=== PATIENT | male | born 1955 | race Two or more races ===

== ENCOUNTER 2016-06-09 15:20 | Inpatient (IN) | payer MEDICAID ==
[~2016-06-09] VITALS: Ht 160 cm; Wt 56.2 kg
[2016-06-09 15:55] VITALS: BP 108/69
[2016-06-09] MEDS ORDERED: METOPROLOL TART50 M1 ORAL (16:05)
[2016-06-09] MEDS ORDERED: FAMOTIDINE20 MG ORAL (16:05)
[2016-06-09] MEDS ORDERED: AMIODARONE HCL400 M1 ORAL (16:05)
[2016-06-09 16:08] LABS: BASOPHILS % (AUTO) 0.5 % (0.0-2.0); EOSINOPHILS % (AUTO) 1.1 % (0.0-3.0); LYMPHOCYTES % (AUTO) 24.8 % (20.0-45.0); MEAN CORPUSCULAR HEMOGLOBIN 30.8 PG (27.0-31.0); MEAN CORPUSCULAR HGB CONC 32.9 G/DL (32.0-36.0); MEAN CORPUSCULAR VOLUME 94 FL (80-99); MEAN PLATELET VOLUME 6.5 FL (6.5-10.1); MONOCYTES % (AUTO) 9.4 % (1.0-10.0); NEUTROPHILS % (AUTO) 64.2 % (45.0-75.0); PLATELET COUNT 185 K/UL (150-450); RED BLOOD COUNT 3.76 M/UL (4.70-6.10); WHITE BLOOD COUNT 6.4 K/UL (4.8-10.8)
[2016-06-09 16:43] LABS: TROPONIN I < 0.30 ng/mL (<=0.30)
[2016-06-09 16:44] LABS: ALANINE AMINOTRANSFERASE 13 U/L (3-41); ANION GAP 15 (5-15); ASPARTATE AMINO TRANSFERASE 14 U/L (5-40); CALCIUM 8.3 mg/dL (8.6-10.2); CARBON DIOXIDE 26 mEQ/L (20-30); CHLORIDE 94 mEQ/L (98-107); CREATININE 0.8 mg/dL (0.7-1.2); GLOMERULAR FILTRATION RATE > 60 mL/min (>60); HEMOLYSIS 2; POTASSIUM 4.2 mEQ/L (3.4-4.9); SODIUM 135 mEQ/L (135-145); TOTAL PROTEIN 6.2 g/dL (6.6-8.7)
[2016-06-09 16:54] LABS: CKMB < 1.5 ng/mL (< 6.7)
[2016-06-09 17:49] LABS: APPEARANCE,URINE CLEAR; KETONES,URINE NEGATIVE (NEGATIVE); LEUKOCYTE ESTERASE ,URINE NEGATIVE (NEGATIVE); NITRITE,URINE NEGATIVE (NEGATIVE); PH,URINE 6 (4.5-8.0); PROTEIN,URINE 1+ (NEGATIVE); UROBILINOGEN,URINE 1 MG/DL (0.0-1.0)
[2016-06-09 18:02] LABS: RBC,URINE 0-2 /HPF (0 - 0); WBC,URINE 0-2 /HPF (0 - 0)
[2016-06-09 18:03] LABS: BACTERIA,URINE OCCASIONAL /HPF
[2016-06-09 18:24] VITALS: BP 94/65
--- NOTE | 2016-06-09 18:27 | Emergency Room Report ---
History of Present Illness General Chief Complaint: Syncope Source: Patient, EMS Present Illness HPI 60-year-old male presents to ED status post syncopal episode. Patient states he passed out today while at home. Denies hitting his head or LOC. Patient states that he's been feeling weak for the last several days. Patient has history of pacemaker and history of stomach cancer. Patient received chemotherapy weekly. Patient states he's been feeling very weak because of the chemotherapy. Denies any fevers or chills. Denies chest pain shortness of breath. Other aggravating relieving factors. Denies any other associated symptoms. Patient does not remember his PMD but states he does get care at [facility] Allergies: Coded Allergies: No Known Allergies (Unverified , 06/09/16) Patient History Past Medical History: other - stomach cancer Past Surgical History: pacemaker Pertinent Family History: none Social History: Denies: alcohol use, drug use, smoking Immunizations: UTD Reviewed Nursing Documentation: PMH: Agreed, PSxH: Agreed Nursing Documentation-PMH Hx Pacemaker: Yes Hx Cancer: Yes - STOMACH Review of Systems All Other Systems: negative except mentioned in HPI Physical Exam Vital Signs Date Time Temp Pulse Resp B/P Pulse Ox O2 Delivery O2 Flow Rate FiO2 06/09/16 15:15 97.5 84 16 118/79 99 Room Air Sp02 EP Interpretation: reviewed, normal General Appearance: no apparent distress, alert, GCS 15, non-toxic, thin Head: normocephalic, atraumatic Eyes: bilateral eye PERRL, bilateral eye normal inspection ENT: hearing grossly normal, normal pharynx, no angioedema, normal voice Neck: full range of motion, supple/symm/no masses Respiratory: chest non-tender, lungs clear, normal breath sounds, speaking full sentences, other - portacath, pacemaker Cardiovascular #1: regular rate, rhythm, no edema Cardiovascular #2: 2+ carotid (R), 2+ carotid (L), 2+ radial (R), 2+ radial (L) , 2+ dorsalis pedis (R), 2+ dorsalis pedis (L) Gastrointestinal: normal bowel sounds, non tender, soft, non-distended, no guarding, no rebound Rectal: deferred Genitourinary: normal inspection, no CVA tenderness Musculoskeletal: back normal, gait/station normal, normal range of motion, non- tender Neurologic: alert, oriented x3, responsive, motor strength/tone normal, sensory intact, speech normal Psychiatric: judgement/insight normal, memory normal, mood/affect normal, no suicidal/homicidal ideation Reflexes: 3+ bicep (R), 3+ bicep (L), 3+ tricep (R), 3+ tricep (L), 3+ knee (R) , 3+ knee (L) Skin: normal color, no rash, warm/dry, well hydrated Lymphatic: no adenopathy Medical Decision Making Diagnostic Impression: Primary Impression: Syncope Qualified Codes: R55 - Syncope and collapse ER Course Hospital Course 60-year-old M presents ED s/p syncopal episode. Differential diagnoses include: DE/unstable angina, arrythmia, dehydration, CVA/ TIA Clinical course Patient placed on stretcher. on quality assurance monitor final. After initial history and physical I ordered labs, EKG, chest x-ray, IVFs labs reviewed- no leukocytosis, hemoglobin/hematocrit ok, electrolytes okay, troponins negative EKG- NSR Chest x-ray- no acute process, portacath, pacemaker, esohageal stent Case discussed with Dr. Ndiaye and he agreed to accept the patient to his service for further care and support I. I feel this is a highly complex case requiring extensive working including EKG/Rhythm strip, Xray/CT/US, Blood/urine lab work, repeat exams while in ED, and administration of strong opiates/narcotics for pain control, admission to hospital or close patient follow up. Diagnosis - syncope admitted to telemetry in serious condition Labs Test 06/09/16 15:51 06/09/16 17:32 White Blood Count 6.4 K/UL (4.8-10.8) Red Blood Count 3.76 M/UL (4.70-6.10) Hemoglobin 11.6 G/DL (14.2-18.0) Hematocrit 35.2 % (42.0-52.0) Mean Corpuscular Volume 94 FL (80-99) Mean Corpuscular Hemoglobin 30.8 PG (27.0-31.0) Mean Corpuscular Hemoglobin Concent 32.9 G/DL (32.0-36.0) Red Cell Distribution Width 14.0 % (11.6-14.8) Platelet Count 185 K/UL (150-450) Mean Platelet Volume 6.5 FL (6.5-10.1) Neutrophils (%) (Auto) 64.2 % (45.0-75.0) Lymphocytes (%) (Auto) 24.8 % (20.0-45.0) Monocytes (%) (Auto) 9.4 % (1.0-10.0) Eosinophils (%) (Auto) 1.1 % (0.0-3.0) Basophils (%) (Auto) 0.5 % (0.0-2.0) Sodium Level 135 mEQ/L (135-145) Potassium Level 4.2 mEQ/L (3.4-4.9) Chloride Level 94 mEQ/L (98-107) Carbon Dioxide Level 26 mEQ/L (20-30) Anion Gap 15 (5-15) Blood Urea Nitrogen 20 mg/dL (7-23) Creatinine 0.8 mg/dL (0.7-1.2) Estimat Glomerular Filtration Rate > 60 mL/min (>60) Glucose Level 132 mg/dL (74-106) Calcium Level 8.3 mg/dL (8.6-10.2) Total Bilirubin 0.5 mg/dL (0.0-1.2) Aspartate Amino Transf (AST/SGOT) 14 U/L (5-40) Alanine Aminotransferase (ALT/SGPT) 13 U/L (3-41) Alkaline Phosphatase 91 U/L (40-129) Total Creatine Kinase 17 U/L (38-174) Creatine Kinase MB < 1.5 ng/mL (< 6.7) Creatine Kinase MB Relative Index Troponin I < 0.30 ng/mL (<=0.30) Pro-B-Type Natriuretic Peptide 238 pg/mL (0-125) Total Protein 6.2 g/dL (6.6-8.7) Albumin 3.2 g/dL (3.5-5.2) Globulin 3.0 g/dL Albumin/Globulin Ratio 1.0 (1.0-2.7) Urine Color Yellow Urine Appearance Clear Urine pH 6 (4.5-8.0) Urine Specific [place] 1.015 (1.005-1.035) Urine Protein 1+ (NEGATIVE) Urine Glucose (UA) Negative (NEGATIVE) Urine Ketones Negative (NEGATIVE) Urine Occult Blood Negative (NEGATIVE) Urine Nitrite Negative (NEGATIVE) Urine Bilirubin Negative (NEGATIVE) Urine Urobilinogen 1 MG/DL (0.0-1.0) Urine Leukocyte Esterase Negative (NEGATIVE) Urine RBC 0-2 /HPF (0 - 0) Urine WBC 0-2 /HPF (0 - 0) Urine Squamous Epithelial Cells None /LPF (NONE/OCC) Urine Bacteria Occasional /HPF (NONE) EKG Diagnostic Results Rate: normal Rhythm: NSR ST Segments: no acute changes ASA given to the pt in ED: No Rhythm Strip Diag. Results EP Interpretation: yes Rhythm: NSR, no PVC's, no ectopy Chest X-Ray Diagnostic Results EP Interpretation: No Findings: no consolidation, no effusion, no pneumothorax, no acute cardiopulmonary disease, other - pacemaker, portacath, esophageal stent Number of Views: 1 Last Vital Signs Date Time Temp Pulse Resp B/P Pulse Ox O2 Delivery O2 Flow Rate FiO2 06/09/16 18:24 97.8 82 14 94/65 100 Room Air Status: improved Disposition: ADMITTED INPATIENT Condition: Serious Referrals: NOT CHOSEN KENNETH/,REFERRING (PCP) BETTY HORNER M.D. Jun 09, 2016 18:27
[2016-06-09 20:50] VITALS: BP 94/52
[2016-06-09 22:55] VITALS: BP 106/54
[2016-06-10] VITALS: BP 81/56
[2016-06-10] MEDS ORDERED: Potassium Chloride 10 MEQ in NS 1000ml 1,000 ML IV SCH (00:15)
[2016-06-10] MEDS: HYDROmorphone 1mg/ml Carpuject IVP PRN ×2 (00:51→15:12)
--- NOTE | 2016-06-10 01:18 | History and Physical Report ---
DATE OF ADMISSION: 06/09/2016 REASON FOR ADMISSION: Nausea, vomiting, and syncope. HISTORY OF PRESENT ILLNESS: This is a 60-year-old male. He has been receiving chemotherapy weekly for a stomach cancer. He apparently has a surgical intervention with a stent placed and has associated pain since. He has been quite weak the last few days due to the chemotherapy and has been eating poorly, feeling increasingly nauseated and apparently passed out at home with no associated injury. The patient was hospitalized at [facility] about two months ago and had a pacemaker placed for presumably for tachy-jose syndrome. He was started on amiodarone loading dose at that time, which he continues to take. PAST MEDICAL HISTORY: As outlined above. MEDICATIONS: Amiodarone 400 mg twice a day, metoprolol 50 mg twice a day, and famotidine 40 mg daily. ALLERGIES: He has no allergies. SOCIAL HISTORY: Negative for smoking, alcohol, or substance abuse. FAMILY HISTORY: Noncontributory. REVIEW OF SYSTEMS: A 10-point review of systems performed and negative other than data outlined above. PHYSICAL EXAMINATION: GENERAL: Thin, frail, weak, nauseated, and uncomfortable. VITAL SIGNS: Blood pressure 118/79, pulse 84, and respirations 16 in the emergency room. Now, his blood pressure is 94/52. HEENT: Mild temporal wasting. Dry mucous membranes. No thrush. NECK: Supple. No adenopathy. LUNGS: Clear. CARDIAC: Regular rhythm and rate. Normal S1, S2 with no murmur. Left chest wall pacemaker pocket site clean and dry. Wound is healed. ABDOMEN: Soft and nontender. EXTREMITIES: Without edema. SKIN: Without rash. LABORATORY AND DIAGNOSTIC DATA: Sodium 135, potassium 4.2, chloride 94, bicarbonate 26, BUN 20, creatinine 0.8, and glucose 132. Liver function tests normal. Troponin negative. Pro-natriuretic peptide 238. Albumin 3.2. White count 6.4 and hemoglobin 11.6. Urinalysis, no active sediment. EKG reveals atrial pacing with no acute abnormalities. Chest x-ray, no acute process. IMPRESSION: 1. Orthostatic syncope. 2. Hypovolemia. 3. Nausea and vomiting due to chemotherapy. 4. Anemia. 5. Hyperglycemia. 6. Prerenal azotemia and hypovolemia. 7. Mild protein-calorie malnutrition. 8. Mild pro-natriuretic peptide elevation of no clinical significance. 9. Permanent pacemaker. 10. Paroxysmal atrial fibrillation. PLAN: 1. Antiemetics, volume resuscitation and saline hydration. 2. Protein supplement as tolerated. 3. Decrease amiodarone to maintenance dose of 200 mg daily. 4. Hold beta-vito until rehydrated, add empiric H2 vito therapy. 5. Replace the electrolytes as needed. 6. Pacemaker interrogation. Claudio Ndiaye M.D. DR: ALEXANDRO JOB#: [id number] CC:
[2016-06-10 04:00] VITALS: BP 77/42
[2016-06-10 08:01] VITALS: BP 81/46
[2016-06-10 08:28] LABS: ALANINE AMINOTRANSFERASE 8 U/L (3-41); ANION GAP 7 (5-15); ASPARTATE AMINO TRANSFERASE 9 U/L (5-40); CALCIUM 7.3 mg/dL (8.6-10.2); CARBON DIOXIDE 24 mEQ/L (20-30); CHLORIDE 106 mEQ/L (98-107); CREATININE 0.6 mg/dL (0.7-1.2); GLOMERULAR FILTRATION RATE > 60 mL/min (>60); HEMOLYSIS 3; MAGNESIUM 1.7 mg/dL (1.7-2.5); POTASSIUM 4.1 mEQ/L (3.4-4.9); SODIUM 137 mEQ/L (135-145); TOTAL PROTEIN 4.6 g/dL (6.6-8.7)
[2016-06-10] MEDS ORDERED: Amiodarone 200mg tab ORAL SCH (09:00)
[2016-06-10 10:01] LABS: MEAN CORPUSCULAR HEMOGLOBIN 31.9 PG (27.0-31.0); MEAN CORPUSCULAR HGB CONC 33.4 G/DL (32.0-36.0); MEAN CORPUSCULAR VOLUME 96 FL (80-99); MEAN PLATELET VOLUME 6.8 FL (6.5-10.1); PLATELET COUNT 128 K/UL (150-450); RED BLOOD COUNT 2.11 M/UL (4.70-6.10); RED CELL DISTRIBUTION WIDTH 13.9 % (11.6-14.8); WHITE BLOOD COUNT 4.9 K/UL (4.8-10.8)
[2016-06-10 10:33] LABS: BAND NEUTROPHILS % (MANUAL) 8 % (0-8); BASOPHILS % (MANUAL) 0 % (0-2); EOSINOPHILS % (MANUAL) 0 % (0-3); HYPOCHROMASIA 1+; LYMPHOCYTES % (MANUAL) 18 % (20-45); NEUTROPHILS % (MANUAL) 67 % (45-75); PLATELET ESTIMATE ADEQUATE; PLATELET MORPHOLOGY NORMAL; TOTAL CELLS COUNTED 100
[2016-06-10 11:39] VITALS: BP 76/48
[2016-06-10] MEDS ORDERED: Pantoprazole Inj IVP SCH (12:15)
[2016-06-10] MEDS ORDERED: NS 550ML IV ONE (16:58)
[2016-06-10] MEDS ORDERED: Tubing Blood Filter IV ONE (16:58)
--- NOTE | 2016-06-10 20:17 | Consultation ---
DATE OF CONSULTATION: 06/10/2016 GASTROLOGY CONSULTATION CHIEF COMPLAINT: I was asked to see this patient by Dr. Claudio Ndiaye for evaluation of gastrointestinal bleeding. HISTORY OF PRESENT ILLNESS: The patient is a pleasant 60-year-old man who is a poor historian, who came to the hospital for the first time. The patient has a history of esophageal cancer, diagnosed about 7-8 months ago and underwent esophageal stent placement six months ago endoscopically for dysphagia. He said the tumor was not resectable and therefore, he has been placed on chemotherapy since then. He cannot recall names of this doctors or oncologist or give any further details. He came to the hospital because of the syncope type of symptoms and also severe anemia. He has received some IV hydration and has significant drop in hematocrit. He had some small episode of upper gastrointestinal bloody emesis as an inpatient so far. He denies any abdominal pain, but he does have some chest pain with this. Stents placed and had a pacemaker placed about 2-3 weeks ago at [facility] for atrial fibrillation and arrhythmia. PAST MEDICAL HISTORY: As above, history of esophageal cancer. FAMILY HISTORY: Noncontributory. SOCIAL HISTORY: The patient is single. He does not drink, rare smoke at work. MEDICATIONS: Prilosec 20 mg daily. REVIEW OF SYSTEMS: Otherwise negative. PHYSICAL EXAMINATION: GENERAL: The patient is a pleasant male, seen in his room. HEENT: Normocephalic and atraumatic. Sclerae anicteric. Oropharynx clear. NECK: Supple. CHEST: Clear to auscultation. CARDIOVASCULAR: Regular rate. ABDOMEN: Soft. EXTREMITIES: No edema. Pacemaker was noted in the chest. NEUROLOGIC: Nonfocal. LABORATORY AND DIAGNOSTIC DATA: Laboratory data was noted. ASSESSMENT: This patient presents with significant drop in hematocrit, which is due to a combination of hydration and also upper gastrointestinal bleeding. The patient does report ongoing dysphagia with solid food and therefore, he likely has a narrowed esophagus despite the sent. An endoscopy can be done to evaluate the risk of recurrent upper gastrointestinal bleeding, however, because of the tumor therapeutics, likely poor and his condition and prognosis are also likewise poor. The could be addressed and the patient will also be offered a dilation enterography to help him swallow better and eat better. Altogether, however his long-term prognosis is extremely poor. The indications, risks, alternatives, and possible complications of endoscopy were explained to the patient and informed consent was obtained. RECOMMENDATIONS: 1. Keep the patient NPO. 2. Blood transfusion as needed. 3. Check coagulation parameters. 4. IV fluids. 5. Serial CBC. 6. Proton pump inhibitor. 7. Endoscopy with possible dilation for possible hemostasis tomorrow. Thank you for asking to participate in the care of this patient. Devora Perrin M.D. DR: MARION JOB#: [id number] CC:
--- NOTE | 2016-06-10 23:40 | Emergency Room Report ---
History of Present Illness General Chief Complaint: Syncope Source: Patient Present Illness Allergies: Coded Allergies: No Known Allergies (Unverified , 06/09/16) Nursing Documentation-[facility] Past Medical History: No History, Except For Hx Hypertension: Yes Hx Pacemaker: Yes - Left chest Hx Cancer: Yes Hx Gastrointestinal Problems: Yes - Stomach cancer Hx Neurological Problems: No Physical Exam Vital Signs Date Time Temp Pulse Resp B/P Pulse Ox O2 Delivery O2 Flow Rate FiO2 06/09/16 15:15 97.5 84 16 118/79 99 Room Air Procedures Critical Care Time Critical Care Time i. I feel this is a highly complex case requiring extensive working including EKG/Rhythm strip, Xray/CT/US, Blood/urine lab work, repeat exams while in ED, and administration of strong opiates/narcotics for pain control, admission to hospital or close patient follow up. Total time: 30 min bedside evaluation and treatment excludes procedures (EKG). Reason for critical care: Vomiting blood, aspiration, cardiac arrest Possible complications: hypotension, hypertension, KS, shock, arrhythmias, metabolic acidosis, end organ damage, respiratory failure. Interventions: ACLS, chest compressions, intubation, defibrillation Course: Patient noted to have episode of bloody vomitus, aspirated then lost pulses. Patient intubated. Patient remains in PEA no pulse. Multiple rounds of ACLS and medications given with no resolution. Patient did have one episode of pulseless V. tach and had defibrillation with no improvement. Patient remains in PEA, patient expires Consultations: nursing staff, EMS, family Performed by: Dr Gunderson Tolerated well condition = exprires j. because of unstable vital signs this patient had a condition that could potentially threaten life or limb. I feel this is a critical patient who required my full attention while patient was considered critical. Total Critical Care Time excluding procedures was greater than 35 minutes Cardioversion Cardioversion: Consent: Emergent Indication: V-TACH - pulseless Type: Desynchonis Response: Other - PEA Attempts: One Patient Tolerated: Poor Complications: None CPR/Code Blue CPR/Code Blue Narrative Patient had bloody vomitus and aspirated. Patient lost pulses. ACLS started. Chest compressions started. Given epinephrine x4. Given bicarbonate and calcium. Accu-Chek within normal limits. Patient intubated. NG tube placed. Despite multiple rounds of medication and chest compressions patient remained in PEA. Patient did have one episode of pulseless V. tach. We attempted defibrillation the patient return to PEA. After multiple rounds patient remains in PEA. Prognosis is poor. Patient expires Intubation Intubation : Consent: Emergent Intubation Method: orotracheal Tube Size (cm): 7.5 Medications: Other - none Breath Sounds after Intubation: equal Intubation Complications: no complications Post Intubation Xray: No - patient Attempts: One Patient Tolerated: Poor Complications: Other - patient Medical Decision Making Diagnostic Impression: Primary Impression: Cardiac arrest ER Course I was called to respond to this CODE BLUE. Patient had bloody vomitus and aspirated. Patient lost pulses. ACLS started. Chest compressions started. Given epinephrine x4. Given bicarbonate and calcium. Accu-Chek within normal limits. Patient intubated. NG tube placed. Despite multiple rounds of medication and chest compressions patient remained in PEA. Patient did have one episode of pulseless V. tach. We attempted defibrillation the patient return to PEA. After multiple rounds patient remains in PEA. Prognosis is poor. Patient expires Last Vital Signs Date Time Temp Pulse Resp B/P Pulse Ox O2 Delivery O2 Flow Rate FiO2 06/10/16 12:00 70 06/10/16 11:39 98.1 20 76/48 96 Room Air Status: worsened Disposition: Condition: Referrals: NOT CHOSEN KENNETH/,REFERRING (PCP) BETTY GUNDERSON M.D. Jun 10, 2016 23:39
--- NOTE | 2016-06-11 03:37 | Discharge Summary ---
DATE OF ADMISSION: 06/09/2016 DATE OF DISCHARGE: 06/10/2016 HOSPITAL COURSE: The patient is a 60-year-old male with esophageal carcinoma who presented to the emergency room yesterday with sepsis. He had several episodes of hematemesis prior to his admission and subsequently last night on the cardiac observation floor. He was hypertensive at that time and volume resuscitated. A CBC done this morning confirmed blood loss with hemoglobin drop at from around 11 to 6.7. The patient was transfused 2 units of packed red blood cells. GI consultation was obtained and plans were made for endoscopy to assess anatomy and options for improving clinical status and further oncology care. The patient became persistently hypertensive and developed a sinus cough. A Code Blue was called and the patient underwent full code without clinical progress. FINAL DIAGNOSES: 1. Esophageal cancer. 2. Acute gastrointestinal bleeding. 3. Acute anemia due to blood loss. Claudio Ndiaye M.D. DR: ANI JOB#: [id number] CC:
--- NOTE | 2016-06-13 10:33 | Diagnostic Imaging Report ---
Indication: Shortness of Technique: One view of the chest Comparison: none Findings: Lungs and pleural spaces are clear. There is what is presumably an esophageal stent. There is a right chest port catheter and a left chest pacemaker. Impression: No acute process Post surgical changes, as described
--- NOTE | 2016-06-27 11:44 | Cardiology Report ---
APPROVED REPORT EKG Measurement Heart [id number] Atrial paced ventricular sensed rhtym Left axis deviation Abnormal ECG
== END 2016-06-10 16:59 | disposition expired | DRG 240 ==
LOC: EDBD 15:20 → EMR 16:00 → 2E 16:21 → EDBEDREQ 17:09
PROC: 0BH17EZ Insertion of Endotracheal Airway into Trachea, Via Natural or Artificial Opening (ICD-10-PCS; 2016-06-09)
PROC: 30233N1 Transfusion of Nonautologous Red Blood Cells into Peripheral Vein, Percutaneous Approach (ICD-10-PCS; principal; 2016-06-10)
DX: C15.9 Malignant neoplasm of esophagus, unspecified (principal); A41.9 Sepsis, unspecified organism; E44.1 Mild protein-calorie malnutrition; I48.0 Paroxysmal atrial fibrillation; D62 Acute posthemorrhagic anemia; E86.1 Hypovolemia; R13.10 Dysphagia, unspecified; K92.2 Gastrointestinal hemorrhage, unspecified; Z68.22 Body mass index [BMI] 22.0-22.9, adult; Z95.0 Presence of cardiac pacemaker; R11.2 Nausea with vomiting, unspecified; D64.9 Anemia, unspecified; R73.9 Hyperglycemia, unspecified; T45.1X5A Adverse effect of antineoplastic and immunosuppressive drugs, initial encounter; Y92.89 Other specified places as the place of occurrence of the external cause
CPT/HCPCS: 36415; 71010; 80053; 81003; 82550; 82553; 82962; 83735; 83880; 84443; 84484; 85007; 85025; 86850; 86900; 86901; 86920; 92950; 93005; J2405